=== PATIENT | female | born 1990 | race Caucasian/White ===

== ENCOUNTER → 2018-08-17 | Outpatient (CLI) | payer BC ==
[~2018-08-17] MED LIST: MIRENA52 MG IY; WELLBUTRIN SR150 M1 PO; XALATAN EYE DROPS OU
== END ==
LOC: LIGHT 13:07
DX: Z01.818 Encounter for other preprocedural examination (principal)

== ENCOUNTER → 2018-08-31 | Outpatient (CLI) | payer BC ==
[~2018-08-31] VITALS: Ht 177.8 cm; Wt 140.4 kg
[~2018-08-31] MED LIST changes: +PRILOSEC 20MG20 MG PO
[2018-08-31 13:34] VITALS: BP 100/50; PULSE 72
== END ==
LOC: LIGHT
DX: M15.9 Polyosteoarthritis, unspecified (principal); F32.9 Major depressive disorder, single episode, unspecified; E66.01 Morbid (severe) obesity due to excess calories; Z68.42 Body mass index [BMI] 45.0-49.9, adult; Z71.3 Dietary counseling and surveillance
CPT/HCPCS: G0463

== ENCOUNTER → 2018-09-16 | Outpatient (CLI) | payer BC | LOC: BHSO 09:04 | DX: E66.9 Obesity, unspecified (principal); Z71.3 Dietary counseling and surveillance ==

== ENCOUNTER → 2018-10-05 | Outpatient (CLI) | payer BC ==
[~2018-10-05] VITALS: Ht 177.8 cm; Wt 137.7 kg
[2018-10-05 14:47] VITALS: BP 114/60; PULSE 64
== END ==
LOC: LIGHT 14:38
DX: M15.9 Polyosteoarthritis, unspecified (principal); F32.9 Major depressive disorder, single episode, unspecified; E66.01 Morbid (severe) obesity due to excess calories; Z68.42 Body mass index [BMI] 45.0-49.9, adult; Z71.3 Dietary counseling and surveillance
CPT/HCPCS: G0463

== ENCOUNTER 2018-11-08 09:30 | Outpatient (RCR) | payer BC | END 2018-11-15 | disposition home or self-care (01) | LOC: WSPT | DX: E66.9 Obesity, unspecified (principal) ==

== ENCOUNTER → 2019-04-12 | Outpatient (CLI) | payer BC | LOC: COL.RAD 09:16 | DX: M16.11 Unilateral primary osteoarthritis, right hip (principal); Z97.5 Presence of (intrauterine) contraceptive device | CPT/HCPCS: A9585; J3301; Q9967 ==

== ENCOUNTER 2019-05-17 17:08 | Emergency (ER) | payer SELFPAY ==
[~2019-05-17] VITALS: Ht 177.8 cm; Wt 93.2 kg
[2019-05-17 17:18] VITALS: BP 130/66; TEMP 96.9
[2019-05-17 18:06] VITALS: PULSE 89
== END 2019-05-17 18:17 | disposition home or self-care (01) ==
LOC: COL.ER 17:08
DX: S50.12XA Contusion of left forearm, initial encounter (principal); W01.0XXA Fall on same level from slipping, tripping and stumbling without subsequent striking against object, initial encounter; Y92.009 Unspecified place in unspecified non-institutional (private) residence as the place of occurrence of the external cause

== ENCOUNTER → 2019-10-10 | Outpatient (CLI) | payer BC | LOC: COL.RAD 12:52 | DX: M25.552 Pain in left hip (principal) | CPT/HCPCS: A9585; Q9967 ==

== ENCOUNTER 2020-06-04 17:38 | Emergency (ER) | payer BC ==
[~2020-06-04] VITALS: Ht 177.8 cm; Wt 80.5 kg
[2020-06-04 17:54] VITALS: TEMP 98.9
[2020-06-04 18:50] LABS: COLLECTION METHOD CLEAN CATCH
[2020-06-04 18:55] LABS: MUCOUS Present /lpf; PH 6 (5-8); SQUAMOUS EPITHELIAL 0-2 /hpf; URINE APPEARANCE Hazy; URINE BACTERIA None Seen /hpf; URINE BILIRUBIN Negative (NEGATIVE); URINE BLOOD Negative (NEGATIVE); URINE COLOR Yellow; URINE GLUCOSE Negative (NEGATIVE); URINE KETONE 2+ (NEGATIVE); URINE LEUKOCYTE ESTERASE Negative (NEGATIVE); URINE NITRATE Negative (NEGATIVE); URINE PROTEIN(semi-quant) Negative (NEGATIVE); URINE RBC 0-2 /hpf; URINE UROBILINOGEN Negative (NEGATIVE)
[2020-06-04 19:31] LABS: HEMATOCRIT 40.4 % (37.0-47.0); HEMOGLOBIN 13.5 g/dl (12.5-16.0); MEAN CELL VOLUME 92 fl (80.0-100.0); MEAN CORPUSCULAR HEMOGLOBIN 31 pg (27.0-31.0); MEAN CORPUSCULAR HGB CONC 33 g/dl (33.0-37.0); MEAN PLATELET VOLUME 10.2 fl (7.4-10.4); PLATELET COUNT 189 K/mm3 (130-400); RED BLOOD COUNT 4.41 M/mm3 (4.10-5.30); REDCELL DISTRIBUTION WIDTH-CV 12.4 % (11.5-14.5)
[2020-06-04 19:39] LABS: ALANINE AMINOTRANSFERASE 40 U/L (4-34); ALBUMIN 4.1 gm/dL (3.5-5.0); ALKALINE PHOSPHATASE 58 U/L (50-136); ANION GAP 7 mmol/L (7-16); AST,SGOT 27 U/L (15-37); BILIRUBIN,TOTAL 0.5 mg/dL (0.0-1.0); BLOOD UREA NITROGEN 13 mg/dL (7-17); CALCIUM 8.9 mg/dL (8.4-10.2); CARBON DIOXIDE 27 mmol/L (22-30); CHLORIDE 102 mmol/L (98-107); CREATININE, serum 0.79 (0.52-1.25); GLUCOSE 122 mg/dL (74-106); LIPASE 42 U/L (23-300); POTASSIUM 4.2 mmol/L (3.4-5.0); SODIUM 136 mmol/L (137-145); TOTAL PROTEIN 7.1 gm/dL (6.4-8.2)
[2020-06-04 19:40] LABS: C-REACTIVE PROTEIN < 0.5 mg/dL (0.0-0.9)
[2020-06-04 20:01] LABS: BAND 1 % (0-10); LYMPHOCYTE 10 % (20.0-51.0); NEUTROPHILS 87 % (42.0-75.2); PLATELET ESTIMATE NORMAL (NORMAL)
[2020-06-04] MEDS ORDERED: PERCOCET 325 MG1 TA2 PO ×2 (22:28)
[2020-06-04 23:03] VITALS: BP 117/65; PULSE 61
[2020-06-05] MEDS ORDERED: LORTABELIX PO ×2 (08:49)
[2020-06-05] MEDS ORDERED: ZOFRAN ODT4 MG PO (08:49)
[2020-06-05] MEDS ORDERED: PROTONIX 40MG T40 MG PO (08:49)
[2020-06-05] MEDS ORDERED: CARAFATE S1 GM/10 ML PO (08:49)
[2020-06-05] MEDS ORDERED: NORCOELIX PO (09:12)
== END 2020-06-04 23:05 | disposition home or self-care (01) ==
LOC: COL.ER 17:38
PROVIDERS: Emergency Medicine
DX: N83.201 Unspecified ovarian cyst, right side (principal); F32.9 Major depressive disorder, single episode, unspecified
CPT/HCPCS: J1170; J2405; J7030; Q9967

== ENCOUNTER 2020-06-05 02:51 | Emergency (ER) | payer BC ==
[~2020-06-05] VITALS: Ht 177.8 cm; Wt 80.5 kg
[~2020-06-05 02:51] MED LIST changes: +PERCOCET 325 MG1 TA2 PO
[2020-06-05 02:53] VITALS: BP 126/75; TEMP 98.8
[2020-06-05 03:55] LABS: HEMATOCRIT 45.1 % (37.0-47.0); MEAN CELL VOLUME 92 fl (80.0-100.0); MEAN CORPUSCULAR HEMOGLOBIN 30 pg (27.0-31.0); MEAN CORPUSCULAR HGB CONC 33 g/dl (33.0-37.0); MEAN PLATELET VOLUME 10.1 fl (7.4-10.4); PLATELET COUNT 193 K/mm3 (130-400); RED BLOOD COUNT 4.93 M/mm3 (4.10-5.30); REDCELL DISTRIBUTION WIDTH-CV 12.6 % (11.5-14.5)
[2020-06-05 04:06] LABS: ALANINE AMINOTRANSFERASE 40 U/L (4-34); ALBUMIN 4.8 gm/dL (3.5-5.0); ALKALINE PHOSPHATASE 70 U/L (50-136); ANION GAP 10 mmol/L (7-16); AST,SGOT 28 U/L (15-37); BILIRUBIN,TOTAL 0.6 mg/dL (0.0-1.0); BLOOD UREA NITROGEN 11 mg/dL (7-17); CALCIUM 9.4 mg/dL (8.4-10.2); CARBON DIOXIDE 24 mmol/L (22-30); CHLORIDE 103 mmol/L (98-107); CREATININE, serum 0.67 (0.52-1.25); GLUCOSE 144 mg/dL (74-106); LIPASE 108 U/L (23-300); SODIUM 136 mmol/L (137-145); TOTAL PROTEIN 8.2 gm/dL (6.4-8.2)
[2020-06-05 04:07] LABS: C-REACTIVE PROTEIN < 0.5 mg/dL (0.0-0.9)
[2020-06-05 04:37] LABS: BAND 1 % (0-10); LYMPHOCYTE 5 % (20.0-51.0); NEUTROPHILS 89 % (42.0-75.2); PLATELET ESTIMATE NORMAL (NORMAL)
[2020-06-05 06:48] VITALS: PULSE 81
[2020-06-05] MEDS ORDERED: ZOFRAN ODT4 MG PO (08:49)
[2020-06-05] MEDS ORDERED: LORTABELIX PO ×2 (08:49)
[2020-06-05] MEDS ORDERED: CARAFATE S1 GM/10 ML PO (08:49)
[2020-06-05] MEDS ORDERED: PROTONIX 40MG T40 MG PO (08:49)
[2020-06-05] MEDS ORDERED: NORCOELIX PO (09:12)
== END 2020-06-05 09:00 | disposition home or self-care (01) ==
LOC: COL.ER 02:51
PROVIDERS: Emergency Medicine
DX: R10.13 Epigastric pain (principal); Z98.84 Bariatric surgery status; Z88.6 Allergy status to analgesic agent
CPT/HCPCS: C9113; J1170; J1630; J2550; J3010; J7030

== ENCOUNTER 2022-07-18 07:17 | Inpatient (IN) | payer BC ==
[~2022-07-18] VITALS: Ht 176.5 cm; Wt 108.6 kg
[~2022-07-18 07:17] MED LIST changes: +CARAFATE S1 GM/10 ML PO; +LORTABELIX PO; +NORCOELIX PO; +PROTONIX 40MG T40 MG PO; +ZOFRAN ODT4 MG PO
[2022-07-22] VITALS (56 sets, daily range): BP systolic 91–141; BP diastolic 49–71; PULSE 53–87; TEMP 97.5–98.1
--- NOTE | 2022-07-22 06:15 | NUR ---
0615 PT AMBULATORY TO UNIT WITH SUPPORT PERSON, DARA. PT CHANGED INTO GOWN, LYING COMFORTABLE IN BED. EFM AND TOCO PLACED AT THIS TIME. DISCUSSSED PLAN OF CARE WITH PT, PT AGREEABLE. PT REPORTS NO CTX, NO LEAKING OF FLUID, AND POSITIVE MOVEMENT. EFM TRACING CATEGORY 1 AT THIS TIME. WILL CONTINUE WITH POC.
[2022-07-22 07:07] LABS: BASO % 0.4 % (0.0-2.0); EOS # 0.1 K/mm3 (0.0-0.7); EOS % 1.2 % (0.0-4.0); GRAN # 6.4 K/mm3 (1.4-6.5); GRAN % 77.8 % (42.2-75.2); HEMOGLOBIN 11.9 g/dl (12.5-16.0); LYMPH # 1.1 K/mm3 (1.2-3.4); LYMPH % 13.3 % (20.0-51.0); MEAN CELL VOLUME 92 fl (80.0-100.0); MEAN CORPUSCULAR HEMOGLOBIN 32 pg (27-31); MEAN CORPUSCULAR HGB CONC 34 g/dl (33.0-37.0); MEAN PLATELET VOLUME 10.1 fl (7.4-10.4); MONO # 0.6 K/mm3 (0.1-0.6); MONO % 6.7 % (1.7-9.3); PLATELET COUNT 208 K/mm3 (130-400); RED BLOOD COUNT 3.78 M/mm3 (4.10-5.30); REDCELL DISTRIBUTION WIDTH-CV 12.1 % (11.5-14.5)
[2022-07-22 07:09] LABS: HEMATOCRIT 34.7 % (37.0-47.0)
[2022-07-22] MEDS ORDERED: PRENATAL TABLET PO (07:17)
--- NOTE | 2022-07-22 08:05 | NUR ---
DR. TEIXEIRA AT BEDSIDE FOR SVE AND AROM. SVE -/-2. 0810 AROM COMPLETE. LARGE AMOUNT OF CLEAR FLUID NOTED. PT TOLERATED PROCEDURE WELL. EFM TRACING CATEGORY 1.
[2022-07-22] MEDS ORDERED: ASPIRIN 81M81 MG/TA2 PO (08:24)
--- NOTE | 2022-07-22 10:10 | NUR ---
1003 PT SITTING UP ON SIDE OF BED PREPARING FOR EPIDURAL PLACEMENT. LR BOLUS RUNNING, PULSE OX AND BP CUFF PLACED. 1010 TEST DOSE ADMINISTERED BY PILLO THAKUR. PT TOLERATED WELL, VITAL SIGNS STABLE, EFM TRACING CATEGORY 1. 1012 PT LYING COMFORTABLE IN BED. EFM CATEGORY 1. WILL CONTINUE TO MONITOR.
--- NOTE | 2022-07-22 10:36 | NUR ---
1036 DR. TEIXEIRA AT BEDSIDE FOR SVE. SVE 2-3/-2. PT TOLERATED SVE WELL.
--- NOTE | 2022-07-22 10:37 | NUR ---
[address] TEIXEIRA TO CONTINUE TITRATING PITOCIN TO 30MU. PT TOLERATING WELL.
--- NOTE | 2022-07-22 11:02 | NUR ---
1102 DR. TEIXEIRA AT BEDSIDE TO PLACE IUPC. UNABLE TO TRACE CONTRACTIONS WITH TOCO DUE TO MATERNAL HABITUS. IUPC PLACED, PT TOLERATED WELL. SVE /-2.
--- NOTE | 2022-07-22 11:36 | NUR ---
1136 DR. TEIXEIRA AT BEDSIDE TO PLACE SCALP ELECTRODE. UNABLE TO TRACE EFM DUE TO MATERNAL HABITUS. FSE PLACED, PT TOLERATED WELL. SVE 3-4//-2.
--- NOTE | 2022-07-22 12:09 | NUR ---
1209 DR. TEIXEIRA AT BEDSIDE FOR SVE -2. WILL RETURN AROUND 1400.
--- NOTE | 2022-07-22 14:10 | NUR ---
1410 DR. TEIXEIRA AT BEDSIDE FOR SVE OF /1. PT TOLERATED WELL
--- NOTE | 2022-07-22 17:53 | NUR ---
1753: PT HYPOTENSIVE, PROLONGED DECELERATION AT THIS TIME, FHT DOWN INTO THE 70-90'S. EPHEDRINE IV ADMINISTERED PER PROTOCOL. SVE 7/80/-1. BLOODY SHOW. PT DENIES FEELING PRESSURE. REPORTS NAUSEA. 1800: MULTIPLE POSITION CHANGES THROUGHOUT DECEL IN ATTEMPT TO RECOVER FHT'S. CURRENTLY IN RIGHT LATERAL POSITION. PITOCIN STOPPED @ 180. ATTEMPT TO PLACE PT IN KNEE CHEST POSITION. UNABLE TO BEAR ANY WEIGHT OR TOLERATE KNEE CHEST SAFELY DUE TO EXTREME DECREASED SENSATION TO BLE FOLLOWING EPIDURAL REDOSING PER VINCE BAÑUELOS CRNA. AT BEDSIDE AT THIS TIME. O2 ON PT VIA MASK AT 10L. PT PLACED IN RIGHT LATERAL POSITION WITH PEANUT BALL TO RECOVER. FHT REMAINS BRADYCARDIC WITH DECELS. REMAINS ON UNIT AND AT BEDSIDE EVALUATING. 1817: SVE UNCHANGED PER . PT PLACED IN LEFT LATERAL POSITION. PITOCIN REMAINS OFF. O2 ON VIA MASK. EPHEDRINE ADMINISTERED IV PER VINCE BAÑUELOS CRNA ORDERS. PT'S VITAL SIGNS STABLE AT THIS TIME. FHT REMAINS BRADYCARDIC WITH RECURRENT DECELERATIONS INTO THE 70'S. 1828: EPHEDRINE IV DOSE #3 ADMINISTERED PER VORB. NO CHANGE NOTED WITH FHT'S. 183: DECISION PER FOR EMERGENT CSECTION. PT AGREEABLE TO POC. PREPPED URGENTLY FOR DELIVERY AND WHEELED TO OR VIA BED.
--- NOTE | 2022-07-22 18:50 | NUR ---
EMERGENT CSECTION,UNABLE TO COMPLETE FULL INSTRUMENT COUNT PRIOR TO OPERATION. PORTABLE XRAY ORDERED PER PROTOCOL. XRAY DEPT NOTIFIED.
--- NOTE | 2022-07-22 22:00 | NUR ---
REPORT TO JOEL GUTIERREZ AT THIS TIME
[2022-07-23 02:00] VITALS: BP 100/54; PULSE 68; TEMP 98.1
[2022-07-23 08:00] VITALS: BP 97/42; PULSE 56; TEMP 97.8
[2022-07-23 13:30] VITALS: BP 108/59; PULSE 58; TEMP 98.7
[2022-07-23 16:00] VITALS: BP 101/52; PULSE 57; TEMP 98.4
[2022-07-23] MEDS ORDERED: PERCOCET 325 MG1 TA2 PO (19:44)
[2022-07-23 20:30] VITALS: BP 109/56; PULSE 58; TEMP 98.2
[2022-07-24 09:30] VITALS: BP 105/52; PULSE 69; TEMP 98.2
[2022-07-24 17:00] VITALS: BP 109/57; PULSE 65; TEMP 98
[2022-07-24 19:45] VITALS: BP 100/44; PULSE 60; TEMP 98.1
[2022-07-25 07:00] VITALS: BP 99/51; PULSE 64; TEMP 97.7
--- NOTE | 2022-07-25 12:23 | NUR ---
Roxicodine 10 mg p.o. given per request and as ordered.
--- NOTE | 2022-07-25 12:30 | NUR ---
1230-Reviewed discharge instructions with patient. Instructed on when to call and provided education on newly prescribed medication. Updated on need to follow up at 2 and 6 weeks . Verbalized understanding. ' 1300-Ambulatory off unit with spouse.
== END 2022-07-25 13:00 | disposition home or self-care (01) | DRG 788 ==
LOC: OB 07-21 07:02 → LDR 07-22 06:03 → OB 07-22 20:45
PROVIDERS: ADMIT Obstetrics & Gynecology
PROC: 10D00Z1 Extraction of Products of Conception, Low, Open Approach (ICD-10-PCS; principal; 2022-07-22)
DX: O99.344 Other mental disorders complicating childbirth (principal); F41.9 Anxiety disorder, unspecified; Z3A.39 39 weeks gestation of pregnancy; Z37.0 Single live birth; F32.A Depression, unspecified; O99.824 Streptococcus B carrier state complicating childbirth; O76 Abnormality in fetal heart rate and rhythm complicating labor and delivery; O69.81X0 Labor and delivery complicated by cord around neck, without compression, not applicable or unspecified; H40.9 Unspecified glaucoma; O99.892 Other specified diseases and conditions complicating childbirth
CPT/HCPCS: J0690; J1100; J1885; J2400; J2405; J2540; J2590; J2795; J7120